=== PATIENT | male | born 1970 | race Caucasian/White ===

== ENCOUNTER → 2018-09-17 | Outpatient (CLI) | payer BC ==
--- NOTE | 2018-09-17 09:33 | Diagnostic Imaging Report ---
Indication: Left heel pain. Time of exam 9:14 AM 2 views left foot were obtained. There is a large plantar calcaneal spur. Midfoot is unremarkable. Metatarsals and phalanges are intact. No fractures are seen. Impression: Calcaneal spur. No acute bony abnormality is detected. Dictated by: Dictated on workstation # [id number]
== END ==
LOC: RAD FS 09:04
PROVIDERS: ATTEND Family Medicine
DX: M77.32 Calcaneal spur, left foot (principal)
CPT/HCPCS: 73620

== ENCOUNTER 2021-08-04 07:24 | Emergency (ER) | payer BC, OTHER ==
[~2021-08-04] VITALS: Ht 175.2 cm; Wt 94.5 kg
[2021-08-04] MEDS ORDERED: PROCHLORPERAZINE 10 MG/2ML INJ (COMPAZINE) IV ONE (08:00)
[2021-08-04] MEDS ORDERED: NS IV 1000 ML 1,000 ML IV SCH ×2 (08:00→09:30)
--- NOTE | 2021-08-04 08:04 | ED General ---
General Chief Complaint: General Problems/Pain Stated Complaint: VOMITING; GEN ACHING Nursing Triage Note: Patient c/o nausea, VARGAS, body aches, Bilat. ear fullness, and sore throat. Pt. states his symptoms started 3 days ago, but states he had vomiting with onset of symptoms. Pt. denies any vomiting last 2 days. Pt. denies any diarrhea, congestion, cough, or shortness of breath. Pt. states he went to Urgent care 2 days ago and states he was tested for Flu, Covid, and strep with all being negative. Pt. states he was given a script for Zofran at Urgent Care and states the Zofran has helped. Pt. states he took Tylenol last night for his symptoms, but denies taking anything today. Source of Information: Patient History of Present Illness Date Seen by Provider: Aug 04, 2021 Time Seen by Provider: 07:40 Initial Comments This active and previously healthy 51 y/o male presents ambulatory to ER w/ report of acute illness beginning "Friday" (3 days ago) as sore throat and followed shortly thereafter by occipital & retro-orbital VARGAS and N/V. He vomited numerous times in the first 24 hours and only a few times the next day after going to (where he reportedly tested NEG for strep, COVID, and FLU) and getting treated w/ Zofran Q8hr (only helped for up to 4 hrs). His VARGAS is now 7/10 and NOT associated w/ fever, rash, swollen glands, or stiff neck. He has had 2 tick bite so far this year. His brother has similar illness. PMH neg for DM, heart/lung dz, liver dz, renal dz, or HTN. No chronic meds and no allergies. Timing/Duration: 3-4 Days Modifying Factors: worse with Immobilization; improves with Medication (zofran) Associated Systoms: No Chest Pain, No Cough, No Diaphoresis, No Fever/Chills; Headaches, Loss of Appetite, Malaise, Nausea/Vomiting; No Rash, No Seizure, No Shortness of Air, No Syncope Allergies and Home Medications Allergies Coded Allergies: No Known Drug Allergies (Unverified , 08/04/21) Patient Home Medication List Home Medication List Reviewed: Yes Doxycycline Hyclate (Doxycycline Hyclate) 100 Mg Tablet, 100 MG PO BID Prescribed by: DALY HORAN on 08/04/21 0950 Ondansetron (Ondansetron Odt) 4 Mg Tab.rapdis, 4 MG PO Q8H PRN for nausea Prescribed by: DALY HORAN on 08/04/2150 Review of Systems Review of Systems Constitutional: see HPI EENTM: throat pain; No ear pain, No double vision, No eye pain, No hoarseness, No throat swelling Respiratory: No cough, No wheezing Gastrointestinal: No abdominal pain, No diarrhea, No hematemesis, No jaundice; nausea, vomiting Genitourinary: decreased output Musculoskeletal: No back pain, No joint pain, No muscle stiffness, No neck pain Skin: no symptoms reported Psychiatric/Neurological: No Symptoms Reported Hematologic/Lymphatic: No Symptoms Reported Immunological/Allergic: no symptoms reported Past Qsamoot-Nuufoc-Zuejmh Hx Patient Social History Tobacco Use?: No Smoking Status: Never a Smoker Smokeless Tobacco Frequency: Light User Use of E-Cig and/or Vaping dev: No Use of E-Cig and/or Vaping Perry: Never a User Substance use?: No Alcohol Use?: Yes Alcohol type: Beer Alcohol Frequency: Couple times a week Pt feels they are or have been: No Immunizations Up To Date Influenza Vaccine Up-to-Date: No; Not Current First/Initial COVID19 Vaccinat: last year Past Medical History Surgery/Hospitalization HX: Denies Surgeries: No Asthma Cardiac: No Neurological: No HIV/AIDS: No Genitourinary: No Gastrointestinal: No Musculoskeletal: No Endocrine: No HEENT: No Cancer: No Physical Exam Vital Signs Vital Signs - First Documented 08/04/21 08/04/21 07:37 08:07 Temp 37.1 Pulse 97 Resp 14 B/P (MAP) 133/90 (104) Pulse Ox 100 O2 Delivery OxyMask O2 Flow Rate 15.00 Capillary Refill : Height, Weight, BMI Height: '" Weight: lbs. oz. kg; 30.00 BMI Method: General Appearance: No Apparent Distress, WD/WN HEENT: PERRL/EOMI, Normal ENT Inspection, Pharynx Normal, Moist Mucous Membranes Neck: Normal Inspection, Non Tender, Supple; No Lymphadenopathy (L), No Lymphadenopathy (R) Respiratory: Lungs Clear, Normal Breath Sounds, No Accessory Muscle Use Cardiovascular: Regular Rate, Rhythm, No Edema, No Murmur, Normal Peripheral Pulses Gastrointestinal: No Organomegaly, No Pulsatile Mass, Non Tender, Soft, Abnormal Bowel Sounds (hyperactive) Extremity: Normal Capillary Refill, Normal Inspection, Normal Range of Motion, Non Tender, No Calf Tenderness Neurologic/Psychiatric: Alert, Oriented x3, No Motor/Sensory Deficits Skin: Normal Color, Warm/Dry; No Jaundice, No Petechia, No Rash Lymphatic: No Adenopathy Progress/Results/Core Measures Suspected Sepsis SIRS Temperature: Pulse: 97 Respiratory Rate: 14 Laboratory Tests 08/04/21 07:59: White Blood Count 7.5 Blood Pressure 133 /90 Mean: 104 Laboratory Tests 08/04/21 07:59: Creatinine 1.08, Platelet Count 268, Total Bilirubin 0.8 Results/Orders Lab Results Laboratory Tests Test 08/04/21 07:59 08/04/21 08:05 Range/Units White Blood Count 7.5 4.3-11.0 10^3/uL Red Blood Count 5.37 4.30-5.52 10^6/uL Hemoglobin 15.7 13.3-17.7 g/dL Hematocrit 45 40-54 % Mean Corpuscular Volume 83 80-99 fL Mean Corpuscular Hemoglobin 29 25-34 pg Mean Corpuscular Hemoglobin Concent 35 32-36 g/dL Red Cell Distribution Width 11.9 10.0-14.5 % Platelet Count 268 130-400 10^3/uL Mean Platelet Volume 10.5 9.0-12.2 fL Immature Granulocyte % (Auto) 0 % Neutrophils (%) (Auto) 73 42-75 % Lymphocytes (%) (Auto) 18 12-44 % Monocytes (%) (Auto) 8 0-12 % Eosinophils (%) (Auto) 0 0-10 % Basophils (%) (Auto) 0 0-10 % Neutrophils # (Auto) 5.5 1.8-7.8 10^3/uL Lymphocytes # (Auto) 1.4 1.0-4.0 10^3/uL Monocytes # (Auto) 0.6 0.0-1.0 10^3/uL Eosinophils # (Auto) 0.0 0.0-0.3 10^3/uL Basophils # (Auto) 0.0 0.0-0.1 10^3/uL Immature Granulocyte # (Auto) 0.0 0.0-0.1 10^3/uL Erythrocyte Sedimentation Rate 4 0-30 MM/HR Sodium Level 135 135-145 MMOL/L Potassium Level 3.8 3.6-5.0 MMOL/L Chloride Level 96 L 98-107 MMOL/L Carbon Dioxide Level 29 21-32 MMOL/L Anion Gap 10 5-14 MMOL/L Blood Urea Nitrogen 17 7-18 MG/DL Creatinine 1.08 0.60-1.30 MG/DL Estimat Glomerular Filtration Rate 83 BUN/Creatinine Ratio 16 Glucose Level 120 H 70-105 MG/DL Calcium Level 9.3 8.5-10.1 MG/DL Corrected Calcium 8.5-10.1 MG/DL Total Bilirubin 0.8 0.1-1.0 MG/DL Aspartate Amino Transf (AST/SGOT) 27 5-34 U/L Alanine Aminotransferase (ALT/SGPT) 36 0-55 U/L Alkaline Phosphatase 66 40-136 U/L Troponin I < 0.30 <0.30 NG/ML Total Protein 7.8 6.4-8.2 GM/DL Albumin 4.7 H 3.2-4.5 GM/DL Lipase 30 8-78 U/L Urine Color YELLOW Urine Clarity CLEAR Urine pH 6.0 5-9 Urine Specific Spraggs >=1.030 1.016-1.022 Urine Protein NEGATIVE NEGATIVE Urine Glucose (UA) NEGATIVE NEGATIVE Urine Ketones NEGATIVE NEGATIVE Urine Nitrite NEGATIVE NEGATIVE Urine Bilirubin NEGATIVE NEGATIVE Urine Urobilinogen 0.2 < = 1.0 MG/DL Urine Leukocyte Esterase NEGATIVE NEGATIVE Urine RBC (Auto) NEGATIVE NEGATIVE Urine RBC 0-2 /HPF Urine WBC RARE /HPF Urine Squamous Epithelial Cells 0-2 /HPF Urine Crystals NONE /LPF Urine Bacteria TRACE /HPF Urine Casts NONE /LPF Urine Mucus LARGE H /LPF Urine Culture Indicated NO My Orders Orders - DALY HORAN MD Cbc With Automated Diff (08/04/21 07:47) Comprehensive Metabolic Panel (08/04/21 07:47) Ua Culture If Indicated (08/04/21 07:47) Erythrocyte Sedimentation Rate (08/04/21 07:47) Troponin I Fs (08/04/21 07:47) Iv Heplock-Insert (Order) (08/04/21 07:47) Oxygen-Administer 07,19 (08/04/21 07:47) Lipase (08/04/21 07:54) Prochlorperazine Injection (Compazine In (08/04/21 08:00) Ns Iv 1000 Ml (Sodium Chloride 0.9%) (08/04/21 08:00) Ketorolac Injection (Toradol Injection) (08/04/21 08:45) Urinalysis (08/04/21 08:05) Ns Iv 1000 Ml (Sodium Chloride 0.9%) (08/04/21 09:30) Medications Given in ED Current Medications Medications Dose Ordered Sig/Merry Route Start Time Stop Time Status Last Admin Dose Admin Ketorolac Tromethamine 15 mg ONCE ONCE IVP 08/04/21 08:45 08/04/21 08:46 DC 08/04/21 08:49 15 MG Prochlorperazine Edisylate 10 mg ONCE ONCE IV 08/04/21 08:00 08/04/21 08:01 DC 08/04/21 08:15 10 MG Vital Signs/I&O 08/04/21 08/04/21 07:37 08:07 Temp 37.1 Pulse 97 Resp 14 B/P (MAP) 133/90 (104) Pulse Ox 100 O2 Delivery OxyMask O2 Flow Rate 15.00 Capillary Refill : Blood Pressure Mean: 104 Progress Note : Time: 09:41 Progress Note He reports feeling much better w/ small residual VARGAS and no nausea at this time. We discussed potential viral and/or tick-borne illness and emphasized need for PCP f/u. I offered LP and he declined stating he has previous experience w/ one and does NOT want to have another. I will refill his Zofran and prescribe Doxy for tick-related coverage and defer further serology to PCP if needed. Departure Impression Primary Impression: Nausea & vomiting Additional Impressions: Headache Tick bite Disposition: 01 HOME, SELF-CARE Condition: Improved Departure-Patient Inst. Decision time for Depature: 09:44 Referrals: TRACY BELL MD (PCP) Primary Care Physician Patient Instructions: Headache, Adult (DC), Nausea and Vomiting, Adult Scripts Doxycycline Hyclate (Doxycycline Hyclate) 100 Mg Tablet 100 MG PO BID for tick bite for 10 Days, #20 TAB 0 Refills Prov: DALY HORAN MD 08/04/21 Ondansetron (Ondansetron Odt) 4 Mg Tab.rapdis 4 MG PO Q8H PRN for nausea for 3 Days, #10 TAB Prov: DALY HORAN MD 08/04/21 DALY HORAN MD Aug 04, 2021 08:04
[2021-08-04 08:14] LABS: BASOPHILS % (AUTO) 0 % (0-10); EOSINOPHILS % (AUTO) 0 % (0-10); HEMATOCRIT 45 % (40-54); HEMOGLOBIN 15.7 g/dL (13.3-17.7); LYMPHOCYTES # (AUTO) 1.4 10^3/uL (1.0-4.0); LYMPHOCYTES % (AUTO) 18 % (12-44); MEAN CORPUSCULAR HEMOGLOBIN 29 pg (25-34); MEAN CORPUSCULAR HGB CONC 35 g/dL (32-36); MEAN CORPUSCULAR VOLUME 83 fL (80-99); MEAN PLATELET VOLUME 10.5 fL (9.0-12.2); MONOCYTES # (AUTO) 0.6 10^3/uL (0.0-1.0); MONOCYTES % (AUTO) 8 % (0-12); NEUTROPHILS # (AUTO) 5.5 10^3/uL (1.8-7.8); NEUTROPHILS % (AUTO) 73 % (42-75); PLATELET COUNT 268 10^3/uL (130-400); WHITE BLOOD COUNT 7.5 10^3/uL (4.3-11.0)
[2021-08-04 08:32] LABS: ERYTHROCYTE SEDIMENTATION RATE 4 MM/HR (0-30)
[2021-08-04 08:37] LABS: SODIUM 135 MMOL/L (135-145)
[2021-08-04 08:38] LABS: ALANINE AMINOTRANSFERASE 36 U/L (0-55); ALBUMIN 4.7 GM/DL (3.2-4.5); ALKALINE PHOSPHATASE 66 U/L (40-136); BILIRUBIN,TOTAL 0.8 MG/DL (0.1-1.0); BUN/CREATININE RATIO 16; CALCIUM 9.3 MG/DL (8.5-10.1); CARBON DIOXIDE 29 MMOL/L (21-32); CHLORIDE 96 MMOL/L (98-107); CREATININE SERUM 1.08 MG/DL (0.60-1.30); GFR ESTIMATED 83; GLUCOSE 120 MG/DL (70-105); POTASSIUM 3.8 MMOL/L (3.6-5.0); TOTAL PROTEIN 7.8 GM/DL (6.4-8.2)
[2021-08-04] MEDS ORDERED: KETOROLAC 30 MG/ML VIAL IVP ONE ×2 (08:45)
[2021-08-04 08:50] LABS: LIPASE 30 U/L (8-78)
[2021-08-04 09:09] LABS: BILIRUBIN,URINE NEGATIVE (NEGATIVE); CLARITY,URINE CLEAR; COLOR,URINE YELLOW; GLUCOSE, URINE (UA) NEGATIVE (NEGATIVE); KETONES,URINE NEGATIVE (NEGATIVE); LEUKOCYTE ESTERASE ,URINE NEGATIVE (NEGATIVE); NITRITE,URINE NEGATIVE (NEGATIVE); PROTEIN,URINE NEGATIVE (NEGATIVE); RBC,URINE 0-2 /HPF
[2021-08-04 09:10] LABS: BACTERIA,URINE TRACE /HPF; SQUAMOUS EPITHELIAL CELL,UR 0-2 /HPF; WBC,URINE RARE /HPF
[2021-08-04] MEDS ORDERED: ONDA4TAB11 PO ×2 (09:47→09:50)
[2021-08-04] MEDS ORDERED: DOXY100T2 PO ×2 (09:47→09:50)
[2021-08-04 10:00] VITALS: BP 131/82
== END 2021-08-04 10:04 | disposition home or self-care (01) ==
LOC: EDUNIT# 07:24 → ER FS 07:25
DX: R11.2 Nausea with vomiting, unspecified (principal); R51.9 Headache, unspecified; W57.XXXA Bitten or stung by nonvenomous insect and other nonvenomous arthropods, initial encounter
CPT/HCPCS: 36415; 80053; 81000; 83690; 84484; 85025; 85652